=== PATIENT | female | born 1935 | race Two or more races ===

== ENCOUNTER 2019-04-06 07:33 | Day surgery (SDC) | payer OTHER ==
[2019-04-06 07:57] VITALS: BMI 23.3
--- NOTE | 2019-04-06 09:05 | PDOC ---
Documentation entered by Lianne Hernandez SCRIBE, acting as scribe for Best Piedra MD. Best Piedra MD: This documentation has been prepared by the David alves Sammi, SCRIBE, under my direction and personally reviewed by me in its entirety. I confirm that the documentation accurately reflects all work, treatment, procedures, and medical decision making performed by me. 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 Pt states that she was walking to the bathroom, and when she stepped on her LLE, "something felt off." She denies falling, and got back into bed. Due to severe pain, she was given dilaudid 4mg PO and sent here for evaluaiton. The patient has experienced multiple dislocations of the left hip since January that have spontaneously reduced themselves, once when sitting and once with just moving the left leg. Pt was discharged home on Thursday from [facility] for evaluation of her left hip, but sustained a fall at some point Thursday or Thursday after discharge. She was evaluated at [facility] for the fall and admitted for observation, then discharged to [facility] yesterday for rehab. But states she had negative CT scans and MRI imaging. Pt reports her orthopedic surgeon Dr. Espinoza has told her she needs a revision of the L hip, but he does not do revisions. She denies fevers, chills, generalized weakness, dizziness, headache, chest pain , shortness of breath, abdominal pain, nausea, vomiting, diarrhea, urinary symptoms. PCP: Dr. Christianson ([facility]) Past History - Past Medical History Allergies/Adverse Reactions: Allergies Allergy/AdvReac Type Severity Reaction Status Date / Time metformin Allergy Verified 04/06/19 07:37 Home Medications: Ambulatory Orders Acetaminophen [Tylenol] 650 mg PO QID PRN 04/06/19 Allopurinol [Zyloprim -] 300 mg PO DAILY 04/06/19 Apixaban [Eliquis] 5 mg PO BID 04/06/19 Atorvastatin Calcium [Lipitor] 10 mg PO HS 04/06/19 Azithromycin 250 mg PO ASDIR 04/06/19 Digoxin [Lanoxin -] 0.125 mg PO DAILY 04/06/19 Diltiazem Cd [Cardizem Cd -] 360 mg PO DAILY 04/06/19 Docusate Sodium [Colace] 100 mg PO TID 04/06/19 Glipizide [Glucotrol -] 10 mg PO BID@0700,1630 04/06/19 HYDROmorphone [Dilaudid -] 4 mg PO ONCE 04/06/19 Latanoprost/Pf [Latanoprost 0.005% Eye Drop] 1 drop OU AM 04/06/19 Losartan Potassium [Cozaar -] 50 mg PO DAILY 04/06/19 Metoprolol Succinate [Toprol Xl] 100 mg PO BID 04/06/19 Sennosides [Natural Laxative] 8.6 mg PO HS 04/06/19 Simethicone 160 mg PO QID PRN 04/06/19 Sitagliptin Phosphate [Januvia -] 100 mg PO DAILY@0700 04/06/19 Temazepam [Restoril] 15 mg PO HS 04/06/19 Timolol 0.5% [Timoptic] 1 drop OU AM 04/06/19 Cardiac Disorders: Yes (AFIB) COPD: No Diabetes: Yes (TYPE 2) HTN: Yes Other medical history: OSTEOPOROSIS - Psycho Social/Smoking Cessation Hx Smoking History: Never smoked Have you smoked in the past 12 months: No Information on smoking cessation initiated: No Hx Alcohol Use: No Drug/Substance Use Hx: No Review of Systems - Review of Systems Comments:: 04/06/19 08:42 GENERAL/CONSTITUTIONAL: No fever or chills. No weakness. GASTROINTESTINAL: No nausea, vomiting, diarrhea or constipation. GENITOURINARY: No dysuria, frequency, or change in urination. CARDIOVASCULAR: No chest pain or shortness of breath. RESPIRATORY: No cough, wheezing, or hemoptysis. MUSCULOSKELETAL: +left hip pain. SKIN: No rash NEUROLOGIC: No headache, vertigo, loss of consciousness, or change in strength/ sensation. *Physical Exam - Vital Signs Last Vital Signs Temp Pulse Resp BP Pulse Ox 97.6 F 92 H 18 138/75 92 L 04/06/19 07:37 04/06/19 07:37 04/06/19 07:37 04/06/19 07:37 04/06/19 07:37 - Physical Exam Comments: 04/06/19 09:02 GENERAL: Awake, alert, and fully oriented, in no acute distress HEAD: No signs of trauma EYES: EOMI, sclera anicteric, conjunctiva clear ENT: Auricles normal inspection, hearing grossly normal, nares patent, oropharynx clear without exudates. Moist mucosa NECK: Normal ROM, supple, no lymphadenopathy, JVD, or masses LUNGS: Breath sounds equal, clear to auscultation bilaterally. No wheezes, and no crackles HEART: Regular rate and rhythm, normal S1 and S2, no murmurs, rubs or gallops ABDOMEN: Soft, nontender, normoactive bowel sounds. No guarding, no rebound. No masses EXTREMITIES: L hip with limited ROM, mild older appearing ecchymosis in groin, + ttp of greater troch, no gross deformities but foot externally rotated. Distally WWP with palpable pulses. NEUROLOGICAL: Normal speech, cranial nerves intact, normal strength RLE and b/ l UE. Normal sensation b/l. SKIN: Warm, Dry, normal turgor, no rashes or lesions noted. ED Treatment Course - LABORATORY CBC & Chemistry Diagram: 04/06/19 09:03 04/06/19 09:03 - RADIOLOGY Radiology Studies Ordered: Category Date Time Status HIP & PELVIS-LEFT [RAD] Stat Radiology 04/06/19 08:43 Ordered Medical Decision Making - Medical Decision Making 04/06/19 09:04 84-year-old female with multiple medical problems including left hip replacement complicated by multiple dislocations presents the emergency department with left hip pain. Concern for recurrent dislocation. We will obtain basic labs, x-ray and reassess. Patient was given Dilaudid for pain control prior to arrival in the emergency department. 04/06/19 09:48 Call placed to Sharron/Aguilar, awaiting call back. 04/06/19 11:[address] Mcdermott, will go to OR for closed reduction Pt admitted to Dr. Mcdermott Case discussed in detail with admitting physician including history, physical exam and ancillary studies. Admitting physician has assumed care for the patient, will follow all pending diagnostics and will complete the evaluation and treatment. Discharge - Discharge Information Problems reviewed: Yes Clinical Impression/Diagnosis: Hip dislocation, left Condition: Stable - Admission Yes - Follow up/Referral Referrals: Yanna Christianson [Primary Care Provider] - - Patient Discharge Instructions - Post Discharge Activity
[2019-04-06 09:19] LABS: BASO % 0.5 % (0-2.0); EOS % 2.3 % (0-4.5); HEMATOCRIT 34.9 % (32.4-45.2); HEMOGLOBIN 11.8 GM/dL (10.7-15.3); LYMPH % 19.6 % (8-40); MCH 37.3 pg (25.7-33.7); MCHC 33.8 g/dl (32.0-36.0); MEAN CELL VOLUME 110.4 fl (80-96); MEAN PLT VOLUME 7.4 fl (7.5-11.1); MONO % 9.9 % (3.8-10.2); NEUT % 67.7 % (42.8-82.8); PLATELET COUNT 166 K/MM3 (134-434); RBC 3.16 M/mm3 (3.60-5.2); WHITE BLOOD COUNT 5.1 K/mm3 (4.0-10.0)
[2019-04-06 09:55] LABS: ALBUMIN 2.9 g/dl (3.4-5.0); BILIRUBIN,TOTAL 0.6 mg/dL (0.2-1); BLOOD UREA NITROGEN 20.8 mg/dL (7-18); CALCIUM 9.3 mg/dL (8.5-10.1); CREATININE 0.7 mg/dL (0.55-1.3); POTASSIUM 4.1 mmol/L (3.5-5.1)
[2019-04-06 10:09] LABS: ANISOCYTOSIS 0; MACROCYTOSIS 1+; PLATELET ESTIMATE NORMAL
[2019-04-06] MEDS ORDERED: oxyCODONE HCL 5 MG TABLET PO PRN (11:30)
[2019-04-06] MEDS ORDERED: ONDANSETRON 4 MG/2 ML VIAL IVPUSH PRN (11:30)
[2019-04-06] MEDS ORDERED: ePHEDrine SULFATE 50 MG/1 ML AMPULE ONE (11:35)
[2019-04-06] MEDS ORDERED: SUCCINYLCHOLINE CHLORIDE 200 MG/10 ML SYRINGE ONE (11:35)
[2019-04-06] MEDS ORDERED: LIDOCAINE HCL 2% 100 MG/5 ML DISP.SYRIN ONE (11:35)
--- NOTE | 2019-04-06 12:09 | CON.ORTH ---
Consult Reason for Consultation:: left hip dislocation - Alcohol/Substance Use Hx Alcohol Use: No - Smoking History Smoking history: Never smoked Have you smoked in the past 12 months: No Home Medications - Allergies Allergies/Adverse Reactions: Allergies Allergy/AdvReac Type Severity Reaction Status Date / Time metformin Allergy Verified 04/06/19 07:37 - Home Medications Home Medications: Ambulatory Orders Acetaminophen [Tylenol] 650 mg PO QID PRN 04/06/19 Allopurinol [Zyloprim -] 300 mg PO DAILY 04/06/19 Apixaban [Eliquis] 5 mg PO BID 04/06/19 Atorvastatin Calcium [Lipitor] 10 mg PO HS 04/06/19 Azithromycin 250 mg PO ASDIR 04/06/19 Digoxin [Lanoxin -] 0.125 mg PO DAILY 04/06/19 Diltiazem Cd [Cardizem Cd -] 360 mg PO DAILY 04/06/19 Docusate Sodium [Colace] 100 mg PO TID 04/06/19 Glipizide [Glucotrol -] 10 mg PO BID@0700,1630 04/06/19 HYDROmorphone [Dilaudid -] 4 mg PO ONCE 04/06/19 Latanoprost/Pf [Latanoprost 0.005% Eye Drop] 1 drop OU AM 04/06/19 Losartan Potassium [Cozaar -] 50 mg PO DAILY 04/06/19 Metoprolol Succinate [Toprol Xl] 100 mg PO BID 04/06/19 Sennosides [Natural Laxative] 8.6 mg PO HS 04/06/19 Simethicone 160 mg PO QID PRN 04/06/19 Sitagliptin Phosphate [Januvia -] 100 mg PO DAILY@0700 04/06/19 Temazepam [Restoril] 15 mg PO HS 04/06/19 Timolol 0.5% [Timoptic] 1 drop OU AM 04/06/19 Physical Exam for Ortho Vital Signs: Vital Signs Temperature 97.6 F 04/06/19 07:37 Pulse Rate 92 H 04/06/19 07:37 Respiratory Rate 18 04/06/19 07:37 Blood Pressure 138/75 04/06/19 07:37 O2 Sat by Pulse Oximetry (%) 92 L 04/06/19 07:37 Labs: CBC, BMP 04/06/19 09:03 04/06/19 09:03 INR, PTT INR Cancelled 04/06/19 09:03 - Lower Extremity Hip: Yes: Left, Leg Externally Rotated, Leg Shortened, Pain, Other (nvi) Imaging - Results X-ray: Image Reviewed Assessment/Plan The patient is an 84 year old female hx Afib on apixiban, NIDDM, HTN, HL, CHF on digoxin, multiple compression fractures s/p kyphoplasty, 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 Pt states that she was walking to the bathroom, and when she stepped on her LLE, "something felt off." She denies falling, and got back into bed. Due to severe pain, she was given dilaudid 4mg PO and sent here for evaluaiton. The patient has experienced multiple dislocations of the left hip since January that have spontaneously reduced themselves, once when sitting and once with just moving the left leg. Pt was discharged home on Thursday from [facility] for evaluation of her left hip, but sustained a fall at some point Thursday or Thursday after discharge. She was evaluated at [facility] for the fall and admitted for observation, then discharged to [facility] yesterday for rehab. But states she had negative CT scans and MRI imaging. Pt has seen Dr. Jackson recently who advised revision THR. a/p left dislocated THR Risks and benefits were d/w pt in detail OR for closed reduction Hip was easily reducible in OR knee immobilizer in place at all times Hip precautions OK to d/c back to [facility] D/w Dr. Jackson who wants to see pt LISSETMarco A to arrange Pt seen in conjunction with Dr. Mcdermott
--- NOTE | 2019-04-06 12:11 | OP ---
Operative Note - Note: Operative Date: 04/06/19 ([facility]) Pre-Operative Diagnosis: left hip dislocation Operation: left hip closed reduction Post-Operative Diagnosis: Same as Pre-op Surgeon: Juancarlos Mcdermott Anesthesiologist/CODING MANAGER: Addison Villarreal Anesthesia: MAC
[2019-04-06] MEDS ORDERED: ACETAMINOPHEN 1000 MG/100 ML VIAL (NON FORMULARY) IVPB ONE (12:45)
[2019-04-06] MEDS ORDERED: ACETAMINOPHEN INJECTION 100 ML IVPB ONE (13:11)
[2019-04-06 14:07] VITALS: TEMP 97.7
[2019-04-06 16:11] VITALS: BP 143/79
[2019-04-06 17:51] VITALS: PULSE 91
--- NOTE | 2019-04-07 09:20 | OP ---
DATE OF OPERATION: 04/06/2019 PREOPERATIVE DIAGNOSIS: Dislocated left total hip replacement. POSTOPERATIVE DIAGNOSIS: Dislocated left total hip replacement. PROCEDURE: Closed reduction under anesthesia of left hip replacement. SURGICAL ATTENDING: Juancarlos Mcdermott MD ANESTHESIA: IV sedation. DESCRIPTION OF OPERATIVE PROCEDURE: Patient taken to the operating room on April 06, 2019. IV sedation was administered per the anesthesiologist. A gentle closed reduction was performed which easily reduced the hip. Fluoroscopy confirmed excellent reduction. Range of motion on direct fluoroscopic guidance revealed eccentric wear of the polyethylene, but adequate stability. Patient was placed in a knee immobilizer, awakened from anesthesia, and will be transferred back to the retirement today. I contacted her orthopedist, Dr. Moreno Jackson, who has scheduled the patient for a revision replacement. He will see her later this week. JUANCARLOS MCDERMOTT M.D. LUIS DANIEL/[id number]
== END 2019-04-06 17:45 ==
LOC: JER 07:33 → JASUSAT 11:18
PROVIDERS: ATTEND Orthopaedic Surgery
PROC: 0SWBXJZ Revision of Synthetic Substitute in Left Hip Joint, External Approach (ICD-10-PCS; principal; 2019-04-06 10:30)
DX: T84.021A Dislocation of internal left hip prosthesis, initial encounter (principal); Y82.8 Other medical devices associated with adverse incidents; Y92.9 Unspecified place or not applicable
CPT/HCPCS: 36415; 73523-TC-FY; 76000-TC-FY; 80053; 85025; 85730; 86850; 86900; 86901; 94760; 99283-25; J0131